=== PATIENT | female | born 1960 | race African-American/Black ===

== ENCOUNTER 2022-09-12 22:09 | Emergency (ER) | payer OTHER ==
[~2022-09-12] VITALS: Ht 165.1 cm; Wt 80.3 kg
[2022-09-12 22:11] VITALS: BP 198/90
--- NOTE | 2022-09-12 22:11 | NUR ---
BIBA TO BED #2
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
--- NOTE | 2022-09-12 22:16 | NUR ---
Dr. Monroe examining patient.
[2022-09-12] MEDS ORDERED: ACETAMINOPHEN EXTRA STRENGTH 500 MG TAB PO ONE (22:25)
[2022-09-12] MEDS ORDERED: ACETAMINOPHEN EXTRA STRENGTH 500 MG TAB ONE (22:28)
[2022-09-12] MEDS ORDERED: KETOROLAC 30 MG/ML VIAL IM ONE (23:30)
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
[2022-09-13] MEDS ORDERED: CYCL-711 PO (00:59)
[2022-09-13] MEDS ORDERED: NAPR-54 PO (00:59)
--- NOTE | 2022-09-13 01:04 | NUR ---
Dr. Monroe explained results and treatment plans.
[2022-09-13 01:12] VITALS: BP 142/82
--- NOTE | 2022-09-13 01:12 | NUR ---
Patient discharged with v/s stable. Written and verbal after care instructions given and explained. Patient alert, oriented and verbalized understanding of instructions. Ambulatory with steady gait. All questions addressed prior to discharge. ID band removed. Patient advised to follow up with PMD. Rx of Flexeril and Naproxen given. Patient educated on indication of medication including possible reaction and side effects. Opportunity to ask questions provided and answered.
== END 2022-09-13 01:12 | disposition home or self-care (01) ==
LOC: MED 22:09
DX: S16.1XXA Strain of muscle, fascia and tendon at neck level, initial encounter (principal); R51.9 Headache, unspecified; Z90.710 Acquired absence of both cervix and uterus; V49.88XA Car occupant (driver) (passenger) injured in other specified transport accidents, initial encounter; Y93.89 Activity, other specified; Y92.89 Other specified places as the place of occurrence of the external cause; Y99.8 Other external cause status
CPT/HCPCS: 70450; 72125; 96372; 99284; J1885